=== PATIENT | male | born 1985 | race African-American/Black ===

== ENCOUNTER 2019-09-04 15:26 | Emergency (ER) | payer SELFPAY ==
[2019-09-04] MEDS ORDERED: CLINDAMYCIN HCL 150 MG CAPSULE PO ONE (15:34)
[2019-09-04] MEDS ORDERED: IBUPROFEN 800 MG TABLET PO ONE (15:34)
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
--- NOTE | 2019-09-04 15:59 | RADIOLOGY REPORT (SQ) ---
EXAM DESCRIPTION: FACIAL BONES COMPLETED DATE/TIME: 09/04/2019 3:47 pm REASON FOR STUDY: Dental pain facial pain facial swelling COMPARISON: None. FINDINGS: Three views of the facial bones. No displaced fracture appreciated. No radiopaque foreign body. Sinuses clear. TECHNICAL DOCUMENTATION: JOB ID: [id number] Reading location - IP/workstation name: [email or web address]
[2019-09-04 16:42] VITALS: BP 119/89
== END 2019-09-04 16:27 | disposition home or self-care (01) ==
LOC: ER 15:26
DX: K02.9 Dental caries, unspecified (principal); K08.89 Other specified disorders of teeth and supporting structures; S02.5XXA Fracture of tooth (traumatic), initial encounter for closed fracture; R68.84 Jaw pain; R22.0 Localized swelling, mass and lump, head; V87.8XXA Person injured in other specified noncollision transport accidents involving motor vehicle (traffic), initial encounter; F17.210 Nicotine dependence, cigarettes, uncomplicated
CPT/HCPCS: 70150; 99283; 99406